=== PATIENT | male | born 1990 | race Caucasian/White ===

== ENCOUNTER 2018-11-17 14:16 | Emergency (ER) | payer OTHER ==
[2018-11-17 14:24] VITALS: BP 150/81
--- NOTE | 2018-11-17 15:00 | ER Document Report ---
HPI - HPI Time Seen by Provider: 11/17/18 14:30 Context: Patient was seen today in the emergency department for suture removal. He was seen at [facility] for a laceration of the laceration was repaired. Denies any fever, chills, body aches, or any other symptoms. Lan cummings is able to move his left first digit where the sutures are out with no difficulty. - CONSTITUTIONAL Constitutional: DENIES: Fever, Chills - EENT EENT: DENIES: Sore Throat, Ear Pain - NEURO Neurology: DENIES: Headache, Weakness, Vision blurred - CARDIOVASCULAR Cardiovascular: DENIES: Chest pain - RESPIRATORY Respiratory: DENIES: Trouble Breathing, Coughing - GASTROINTESTINAL Gastrointestinal: DENIES: Abdominal Pain, Nausea, Patient vomiting, Diarrhea - MUSCULOSKELETAL Musculoskeletal: REPORTS: Extremity pain - Tenderness to finger. DENIES: Swelling - DERM Skin Color: Normal Skin Problems: None Past Medical History - General Information source: Patient - Social History Smoking Status: Unknown if Ever Smoked Family History: Reviewed & Not Pertinent Vertical Provider Document - CONSTITUTIONAL Agree With Documented VS: Yes Exam Limitations: No Limitations General Appearance: No Apparent Distress - HEENT HEENT: Atraumatic, Normocephalic, PERRLA - RESPIRATORY Respiratory: No Respiratory Distress - CARDIOVASCULAR Cardiovascular: Regular Rate, Regular Rhythm Pulses: Normal: Radial - MUSCULOSKELETAL/EXTREMETIES Musculoskeletal/Extremeties: FROM, Tender - NEURO Level of Consciousness: Awake, Alert, Appropriate - DERM Integumentary: Warm, Dry, No Rash Course - Re-evaluation Re-evalutation: 11/17/18 Sutures were removed and the PCT who removed them stated that the wound edges were starting to come apart a little bit. Steri-Strips were placed to the finger. Patient was instructed to keep his finger and dry. Will follow-up with his primary care provider as needed. No infection suspected at this time. Follow-up precautions were given. Verbal discharge instructions were given to the patient. They verbalized understanding. They are stable for discharge. - Vital Signs Vital signs: Temp Pulse Resp BP Pulse Ox 98.5 F 73 18 150/81 H 99 11/17/18 14:23 11/17/18 14:23 11/17/18 14:23 11/17/18 14:23 11/17/18 14:23 Discharge - Discharge Clinical Impression: Visit for suture removal Condition: Stable Disposition: HOME, SELF-CARE Additional Instructions: You are seen today in the emergency department for suture removal. The sutures were removed here in the emergency department. Please follow-up with primary care provider as needed. Forms: Return to Work
== END 2018-11-17 16:48 | disposition home or self-care (01) ==
LOC: ER 14:16
DX: S61.219D Laceration without foreign body of unspecified finger without damage to nail, subsequent encounter (principal); X58.XXXD Exposure to other specified factors, subsequent encounter
CPT/HCPCS: 99281